=== PATIENT | female | born 1975 | race Caucasian/White ===

== ENCOUNTER 2017-12-04 11:56 | Observation (INO) | payer BC, OTHER ==
[2017-12-04] MEDS ORDERED: ASPIRIN 81 MG TABLET, CHEWABLE PO ONE (12:10)
--- NOTE | 2017-12-04 12:35 | RADIOLOGY REPORT (SQ) ---
EXAM DESCRIPTION: CHEST SINGLE VIEW COMPLETED DATE/TIME: 12/04/2017 12:27 pm REASON FOR STUDY: chest pain COMPARISON: 02/05/2012. EXAM PARAMETERS: NUMBER OF VIEWS: One view. TECHNIQUE: Single frontal radiographic view of the chest acquired. RADIATION DOSE: NA LIMITATIONS: None. FINDINGS: LUNGS AND PLEURA: No opacities, masses or pneumothorax. No pleural effusion. MEDIASTINUM AND HILAR STRUCTURES: No masses. Contour normal. HEART AND VASCULAR STRUCTURES: Heart normal in size. Normal vasculature. BONES: No acute findings. HARDWARE: None in the chest. OTHER: No other significant finding. IMPRESSION: NO ACUTE RADIOGRAPHIC FINDING IN THE CHEST. TECHNICAL DOCUMENTATION: JOB ID: [id number] [employer]- All Rights Reserved Reading location - IP/workstation name: [email or web address]
[2017-12-04 12:49] LABS: ABSOLUTE BASOPHILS # (AUTO) 0.1 10^3/uL (0.0-0.2); ABSOLUTE EOSINOPHILS # (AUTO) 0.3 10^3/uL (0.0-0.6); ABSOLUTE LYMPHOCYTES (AUTO) 2.1 10^3/uL (0.5-4.7); ABSOLUTE MONOCYTES (AUTO) 0.5 10^3/uL (0.1-1.4); ABSOLUTE NEUT (AUTO) 4.9 10^3/uL (1.7-8.2); BASOPHILS % (AUTO) 1.3 % (0-2); HEMATOCRIT 36.8 % (36.0-47.0); HEMOGLOBIN 12.3 g/dL (12.0-15.5); MEAN CORPUSCULAR HEMOGLOBIN 27.4 pg (27.0-33.4); MEAN CORPUSCULAR HGB CONC 33.3 g/dL (32.0-36.0); MEAN CORPUSCULAR VOLUME 82 fl (80-97); MONOCYTES % (AUTO) 6.7 % (3-13); PLATELET COUNT 305 10^3/uL (150-450); RED BLOOD COUNT 4.49 10^6/uL (3.72-5.28); RED CELL DISTRIBUTION WIDTH 13.8 % (11.5-14.0); TOTAL CELLS COUNTED % (AUTO) 100 %; WHITE BLOOD COUNT 7.9 10^3/uL (4.0-10.5)
[2017-12-04 13:11] LABS: ALANINE AMINOTRANSFERASE 30 U/L (9-52); ALBUMIN 3.6 g/dL (3.5-5.0); ALKALINE PHOSPHATASE 57 U/L (38-126); ANION GAP 12 (5-19); ASPARTATE AMINO TRANSFERASE 20 U/L (14-36); BILIRUBIN,DIRECT 0.2 mg/dL (0.0-0.4); BILIRUBIN,TOTAL 0.2 mg/dL (0.2-1.3); BLOOD UREA NITROGEN 13 mg/dL (7-20); CALCIUM 9.3 mg/dL (8.4-10.2); CARBON DIOXIDE 24 mmol/L (22-30); CHLORIDE 106 mmol/L (98-107); CREATINE KINASE 260 U/L (30-135); GLUCOSE 119 mg/dL (75-110); POTASSIUM 4.5 mmol/L (3.6-5.0); TOTAL PROTEIN 6.6 g/dL (6.3-8.2)
--- NOTE | 2017-12-04 13:12 | RADIOLOGY REPORT (SQ) ---
EXAM DESCRIPTION: CTA CHEST COMPLETED DATE/TIME: 12/04/2017 12:57 pm REASON FOR STUDY: sob, recent travel COMPARISON: None. TECHNIQUE: CT scan of the chest performed using helical scanning technique with dynamic intravenous contrast injection. Images reviewed with lung, soft tissue and bone windows. Reconstructed coronal and sagittal MPR images reviewed. Additional 3 dimensional post-processing performed to develop Maximal Intensity Projection images (NC P). All images stored on PACS. All CT scanners at this facility use dose modulation, iterative reconstruction, and/or weight based d osing when appropriate to reduce radiation dose to as low as reasonably achievable (ALARA). [facility]: Dose Right [facility]: CareDose [facility]: Dose Right [facility]: Teradose 4D [facility]: Advanced BioNutrition CONTRAST TYPE AND DOSE: contrast/concentration: Isovue 370.00 mg/ml; Total Contrast Delivered: 82.0 ml; Total Saline Delivered: 100.0 ml Contrast bolus adequate for pulmonary arteries and aorta. RENAL FUNCTION: None required. The patient is less than 50 years old. RADIATION DOSE: CT Rad equipment meets quality standard of care and radiation dose reduction techniq ues were employed. CTDIvol: 19.7 - 24.8 mGy. DLP: 745 mGy-cm. . LIMITATIONS: None. FINDINGS: LUNGS AND PLEURA: No masses, infiltrates, pneumothorax. No pleural effusions, calcificati ons. AORTA AND GREAT VESSELS: No aneurysm. Contrast bolus not optimized for the aorta. HEART: No pericardial effusion. No significant coronary artery calcifications. PULMONARY ARTERIES: No emboli visualized in the main pulmonary arteries or the segmental branches. HILAR AND MEDIASTINAL STRUCTURES: No identified masses or abnormal nodes. HARDWARE: None in the chest. UPPER ABDOMEN: No significant findings. Limited exam. THYROID AND OTHER SOFT TISSUES: No masses. No adenopathy. BONES: No acute or significant finding. 3D MIPS: Confirm above findings. OTHER: No other significant finding. IMPRESSION: NORMAL CTA OF THE CHEST. NO PULMONARY EMBOLI. COMMENT: Quality ID # [id number]: Final reports with documentation of one or more dose reduction techniques (e.g., Automated exposure control, adjustment of the mA and/or kV according to patient size, use of iterative reconstruction technique) TECHNICAL DOCUMENTATION: JOB ID: [id number] [employer]- All Rights Reserved Reading location - IP/workstation name: [email or web address]
[2017-12-04 13:23] LABS: CREATINE KINASE MB 0.97 ng/mL (<4.55)
[2017-12-04 13:26] LABS: TROPONIN I < 0.012 ng/mL
--- NOTE | 2017-12-04 13:42 | ER Document Report ---
ED General - General Chief Complaint: Chest Pressure Stated Complaint: CHEST PAIN Time Seen by Provider: 12/04/17 12:10 Mode of Arrival: Ambulatory Information source: Patient Notes: 42-year-old female presents with complaints of generalized swelling sensation as well as pressure on her chest. Patient notes she went hiking over the weekend, there was a [address], patient notes swelling the lower and upper extremities and sensation of pressure associated with shortness of breath. Patient denies any history of coronary artery disease or blood clots TRAVEL OUTSIDE OF THE [place] IN LAST 30 DAYS: No - HPI Onset: Last week Onset/Duration: Persistent Quality of pain: Pressure Severity: Mild Pain Level: 1 Associated symptoms: Chest pain Exacerbated by: Supine Relieved by: Denies Similar symptoms previously: No Recently seen / treated by doctor: No - Related Data Allergies/Adverse Reactions: Sulfa (Sulfonamide Antibiotics) Allergy (Severe, Verified 12/04/17 15:00) lip swelling Penicillins Allergy (Intermediate, Verified 12/04/17 15:00) Hives ketorolac tromethamine [From Toradol] Allergy (Verified 12/04/17 15:00) cyclobenzaprine Adverse Reaction (Verified 12/04/17 15:00) heart racing Past Medical History - Social History Smoking Status: Never Smoker Cigarette use (# per day): No Chew tobacco use (# tins/day): No Smoking Education Provided: No Frequency of alcohol use: None Drug Abuse: None Family History: Reviewed & Not Pertinent Patient has suicidal ideation: No Patient has homicidal ideation: No Renal/ Medical History: Denies: Hx Peritoneal Dialysis Past Surgical History: Reports: Hx Breast Surgery - reduction - Immunizations Hx Diphtheria, Pertussis, Tetanus Vaccination: Yes Review of Systems - Review of Systems Notes: REVIEW OF SYSTEMS: CONSTITUTIONAL : Denies fever, chills, or sweats. Denies recent illness. EENT: Denies eye, ear, throat, or mouth pain or symptoms. Denies nasal or sinus congestion or discharge. Denies throat, tongue, or mouth swelling or difficulty swallowing. CARDIOVASCULAR: Admits to chest pain GASTROINTESTINAL: Denies abdominal pain or distention. Denies nausea, vomiting , or diarrhea. Denies blood in vomitus, stools, or per rectum. Denies black, tarry stools. Denies constipation. GENITOURINARY: Denies difficulty urinating, painful urination, burning, frequency, blood in urine, or discharge. FEMALE GENITOURINARY: Denies vaginal bleeding, heavy or abnormal periods, irregular periods. Denies vaginal discharge or odor. MUSCULOSKELETAL: Admits to generalized swelling SKIN: Denies rash, lesions or sores. HEMATOLOGIC : Denies easy bruising or bleeding. LYMPHATIC: Denies swollen, enlarged glands. NEUROLOGICAL: Denies confusion or altered mental status. Denies passing out or loss of consciousness. Denies dizziness or lightheadedness. Denies headache. Denies weakness or paralysis or loss of use of either side. Denies problems with gait or speech. Denies sensory loss, numbness, or tingling. Denies seizures. PSYCHIATRIC: Denies anxiety or stress. Denies depression, suicidal ideation, or homicidal ideation. ALL OTHER SYSTEMS REVIEWED AND NEGATIVE. PHYSICAL EXAMINATION: GENERAL: Well-appearing, well-nourished and in no acute distress. HEAD: Atraumatic, normocephalic. EYES: Pupils equal round and reactive to light, extraocular movements intact, conjunctiva are normal. ENT: Nares patent, oropharynx clear without exudates. Moist mucous membranes. NECK: Normal range of motion, supple without lymphadenopathy LUNGS: Breath sounds clear to auscultation bilaterally and equal. No wheezes rales or rhonchi. HEART: Regular rate and rhythm without murmurs ABDOMEN: Soft, nontender, nondistended abdomen. No guarding, no rebound. No masses appreciated. Female : deferred Musculoskeletal: Normal range of motion, non-pitting edema of the bilateral lower extremities NEUROLOGICAL: Cranial nerves grossly intact. Normal speech, normal gait. Normal sensory, motor exams PSYCH: Normal mood, normal affect. SKIN: Warm, Dry, normal turgor, no rashes or lesions noted. Dictation was performed using [employer] voice recognition software Physical Exam - Vital signs Vitals: Temp Pulse Resp BP Pulse Ox 98.5 F 73 16 145/79 H 97 12/04/17 12:01 12/04/17 12:01 12/04/17 12:01 12/04/17 12:01 12/04/17 12:01 Course - Re-evaluation Re-evalutation: 12/04/17 16:42 Patient's presentation was initially concerning for pulmonary emboli, CTA noted no effusions no fluid, the patient however continues to have pressure sensation of her chest, my concern is for an acute coronary syndrome therefore cardiac enzymes were ordered. BNP was slightly elevated - Vital Signs Vital signs: Temp Pulse Resp BP Pulse Ox 98.5 F 73 13 114/81 98 12/04/17 12:01 12/04/17 12:01 12/04/17 15:28 12/04/17 15:28 12/04/17 15:59 - Laboratory Result Diagrams: 12/04/17 12:36 12/04/17 12:36 Laboratory results interpreted by me: 12/04/17 12/04/17 12/04/17 12:36 12:36 14:22 Glucose 119 H Creatine Kinase 260 H NT-Pro-B Natriuret Pep 674 H Urine Blood MODERATE H Ur Leukocyte Esterase SMALL H - Diagnostic Test Radiology reviewed: Image reviewed - CTA chest notes no acute abnormality, Reports reviewed Discharge - Discharge Clinical Impression: Generalized edema Chest pain Qualifiers: Chest pain type: unspecified Qualified Code(s): R07.9 - Chest pain, unspecified Condition: Stable Disposition: ADMITTED OBSERVATION Admitting Provider: Hospitalist Unit Admitted: Telemetry
[2017-12-04] MEDS ORDERED: ONDANSETRON HCL INJ/PF 4 MG/2 ML SDV IV PRN (14:13)
[2017-12-04] MEDS ORDERED: MAG HYDROX/AL HYDROX/SIMETH SUSP 30 ML UDCUP PO PRN (14:13)
[2017-12-04] MEDS ORDERED: NITROGLYCERIN 0.4 MG/TAB 25 TAB/BOTTLE SL PRN (14:13)
[2017-12-04] MEDS ORDERED: DOCUSATE SODIUM 100 MG CAPSULE PO PRN (14:13)
[2017-12-04] MEDS ORDERED: FUROSEMIDE INJ/PF 20 MG/2 ML SDV IV ONE (15:15)
[2017-12-04 15:30] LABS: APPEARANCE,URINE SLIGHTLY-CLOUDY; BILIRUBIN,URINE NEGATIVE (NEGATIVE); COLOR,URINE STRAW; GLUCOSE, URINE NEGATIVE (NEGATIVE); KETONES,URINE NEGATIVE (NEGATIVE); LEUKOCYTE ESTERASE,URINE SMALL (NEGATIVE); NITRITE,URINE NEGATIVE (NEGATIVE); PROTEIN,URINE NEGATIVE (NEGATIVE); URINE SPECIFIC GRAVITY 1.016; UROBILINOGEN,URINE NEGATIVE mg/dL (<2.0)
--- NOTE | 2017-12-04 15:56 | PDOC H&P ---
History of Present Illness Admission Date/PCP: 12/04/17 14:30 Patient complains of: Chest pressure, dyspnea, and generalized edema History of Present Illness: CHENG BILLINGS is a 42 year old female with no significant past medical history who presented to the emergency department today with a complaint of generalized edema progressively worsening 4 days, worsening dyspnea and orthopnea 2 days and chest discomfort described as pressure first noted this morning. She reports that her chest pressure pressure is nonradiating, generalized throughout chest, worsens when lying flat and improves when sitting upright or abducting arms bilaterally. The patient reports that she returned from a 30 mile hike 4 days ago and has had minimal urinary output since despite aggressively pushing p.o. fluids. She denies abdominal pain, flank pain, hematuria and dysuria, however, has noted that her urine has been very dark in color. She does admit to numerous bug/ mosquito bites but denies take exposure and rash. She denies unilateral leg edema, erythema, or pain. She denies fever, chills, cough, abdominal pain, nausea vomiting diarrhea and constipation. Evaluation in the emergency department reveals mild hypertenstion (145/79), normal CBC, and mildly elevated glucose (119) and creatine kinase (260). EKG demonstrates normal sinus rhythm. Chest x-ray and chest CTA are benign and without evidence of pulmonary emboli. The patient is admitted for chest discomfort and generalized edema. Past Medical History Cardiac Medical History: Denies: Congestive Heart Failure, Coronary Artery Disease, DVT, Myocardial Infarction Pulmonary Medical History: Denies: Asthma, Chronic Obstructive Pulmonary Disease (COPD), Pneumonia EENT Medical History: Reports: None Neurological Medical History: Denies: Ischemic CVA, Migraine, Seizures Endocrine Medical History: Reports: Obesity Denies: Diabetes Mellitus Type 1, Diabetes Mellitus Type 2, Hyperthyroidism, Hypothyroidism Renal/ Medical History: Reports: None Denies: Chronic Kidney Disease Malignancy Medical History: Reports: None GI Medical History: Reports: None Denies: Gastroesophageal Reflux Disease, Peptic Ulcer Disease Musculoskeltal Medical History: Reports: None Skin Medical History: Reports: None Psychiatric Medical History: Reports: None Denies: Alcohol Dependency, Depression, General Anxiety Disorder, Substance Abuse, Tobacco Dependency Traumatic Medical History: Reports: None Hematology: Reports: None Infectious Medical History: Reports: None Past Surgical History Past Surgical History: Reports: Other - Breast reduction Social History Information Source: Patient Lives with: Family Smoking Status: Never Smoker Frequency of Alcohol Use: Occasional Hx Recreational Drug Use: No Drugs: None Hx Prescription Drug Abuse: No - Advance Directive Resuscitation Status: Full Code Family History Family History: DM, Malignancy, Other - EtOH abuse Parental Family History Reviewed: Yes Children Family History Reviewed: Yes Sibling(s) Family History Reviewed.: Yes Medication/Allergy Home Medications: Norgestimate-Ethinyl Estradiol [Mononessa 28 Tablet] 1 each PO DAILY 12/04/17 Allergies/Adverse Reactions: Sulfa (Sulfonamide Antibiotics) Allergy (Severe, Verified 12/04/17 15:00) lip swelling Penicillins Allergy (Intermediate, Verified 12/04/17 15:00) Hives ketorolac tromethamine [From Toradol] Allergy (Verified 12/04/17 15:00) cyclobenzaprine Adverse Reaction (Verified 12/04/17 15:00) heart racing Review of Systems Constitutional: ABSENT: chills, fever(s), headache(s), weight gain, weight loss Eyes: ABSENT: visual disturbances Ears: ABSENT: hearing changes Cardiovascular: PRESENT: chest pain, dyspnea on exertion, edema, orthropnea, palpitations Respiratory: PRESENT: dyspnea. ABSENT: cough, hemoptysis, sputum Gastrointestinal: ABSENT: abdominal pain, constipation, diarrhea, hematemesis, hematochezia, nausea, vomiting Genitourinary: PRESENT: other - Decreased urinary output. ABSENT: dysuria, hematuria Musculoskeletal: ABSENT: joint swelling Integumentary: ABSENT: rash, wounds Neurological: ABSENT: abnormal gait, abnormal speech, confusion, dizziness, focal weakness, syncope Psychiatric: ABSENT: anxiety, depression, homidical ideation, suicidal ideation Endocrine: ABSENT: cold intolerance, heat intolerance, polydipsia, polyuria Hematologic/Lymphatic: ABSENT: easy bleeding, easy bruising Physical Exam Vital Signs: Temp Pulse Resp BP Pulse Ox 98.5 F 73 16 145/79 H 98 12/04/17 12:01 12/04/17 12:01 12/04/17 12:12/04/17 12:12/04/17 12:10 General appearance: PRESENT: no acute distress, well-developed, well-nourished Head exam: PRESENT: atraumatic, normocephalic Eye exam: PRESENT: conjunctiva pink, EOMI, PERRLA. ABSENT: scleral icterus Ear exam: PRESENT: normal external ear exam Mouth exam: PRESENT: moist, tongue midline Neck exam: ABSENT: carotid bruit, JVD, lymphadenopathy, thyromegaly Respiratory exam: PRESENT: clear to auscultation nupur. ABSENT: rales, rhonchi, wheezes Cardiovascular exam: PRESENT: RRR. ABSENT: diastolic murmur, rubs, systolic murmur Pulses: PRESENT: normal dorsalis pedis pul Vascular exam: PRESENT: normal capillary refill GI/Abdominal exam: PRESENT: normal bowel sounds, soft. ABSENT: distended, guarding, mass, organolmegaly, rebound, tenderness Rectal exam: PRESENT: deferred Extremities exam: PRESENT: full ROM. ABSENT: calf tenderness, clubbing, pedal edema Neurological exam: PRESENT: alert, awake, oriented to person, oriented to place , oriented to time, oriented to situation, CN II-XII grossly intact. ABSENT: motor sensory deficit Psychiatric exam: PRESENT: appropriate affect, normal mood. ABSENT: homicidal ideation, suicidal ideation Skin exam: PRESENT: dry, intact, warm. ABSENT: cyanosis, rash Results Impressions: Chest X-Ray 12/04/17 12:10 IMPRESSION: NO ACUTE RADIOGRAPHIC FINDING IN THE CHEST. Chest/Abdomen CTA 12/04/17 12:20 IMPRESSION: NORMAL CTA OF THE CHEST. NO PULMONARY EMBOLI. Assessment & Plan - Diagnosis (1) Chest pain Qualifiers: Chest pain type: unspecified Qualified Code(s): R07.9 - Chest pain, unspecified Is this a current diagnosis for this admission?: Yes Plan: The patient presented to the emergency department with complaint of generalized chest discomfort associated with dyspnea at rest and orthopnea and generalized edema. HEART score 2 (low risk). Patient's risk factors only include obesity. Despite low probability of acute coronary syndrome, her symptoms seem to be rapidly worsening and therefore she is admitted under observational status for chest pain workup. Chest x-ray is normal CTA is benign; no evidence of pulmonary emboli EKG demonstrated normal sinus rhythm Initial troponin is negative BNP is moderately elevated at 674 She is admitted to the medical floor on continuous cardiac telemetry. We will obtain echocardiogram. Monitor serial troponins. Plan for treadmill stress test in the morning. Daily aspirin and statin therapy. Will assess lipid panel, TSH, and hemoglobin A1c with morning labs. SL Nitro tabs as needed for chest pain. (2) Dyspnea Is this a current diagnosis for this admission?: Yes Plan: The patient reports 4 days of progressively worsening dyspnea at rest and orthopnea. Symptoms are improved by sitting high Andrew's and choking arms bilaterally. Although chest x-ray and CTA do not evidence pulmonary edema; symptoms may be related to generalized edema vs chest wall discomfort/muscle fatigue (patient recently returned from a 30 mile hike on the [facility]) . ProBNP elevated 674 Echocardiogram pending Supplemental oxygen as needed to maintain oxygen saturations greater than 90%. We will trial diuresing with IV furosemide 20 mg 1; assess response prior to additional doses. Patient is currently maintaining oxygen saturations on room air, though appears to be fatigued. Will place order for BiPAP as needed. (3) Generalized edema Is this a current diagnosis for this admission?: Yes Plan: Unclear etiology; proBNP is mildly elevated at 674. Creatinine kinase is also elevated to 260, however, creatinine is normal at 0.74. The patient reports that she has had 4 days of minimal urinary output despite aggressive p.o. fluid rehydration following return from her hike. First "normal amount" or urine void was noted this morning, although, patient noted that urine remains dark and strong smelling. Considering that the patient may be recovering from an Acute Kidney Injury or potential rhabdomyolysis that was corrected with oral fluids at home and therefore not reflective in her laboratory values. Additional consideration for new diagnosis of CHF. Will further evaluate for rhabdomyolysis with CRP and sed rate. We will trend creatinine kinase. Echocardiogram pending. Will trial furosemide and monitor for clinical improvement and proBNP response with morning labs. Pt denies fever, rash, or tick exposure; consider infectious process if patient develops fever, rash, or leukocytosis. Will asses TSH. Holding IVF given elevated BNP; however, have encouraged continued oral fluid intake. Patient is placed on a cardiac diet. Will monitor strict I&Os. (4) Decreased urine output Is this a current diagnosis for this admission?: Yes Plan: Patient reports minimal urinary output 4 days; likely related to dehydration. Creatinine and BUN are appropriate. Urinalysis is positive for blood and leuk esterase but negative for UTI. We will monitor strict I's and O's. Encourage p.o. fluids. Avoid nephrotoxic medications. Consider renal ultrasound for continued poor urinary output. Holding IVF currently 2/2 generalized edema and mildly elevated proBNP. - Time Time Spent: 50 to 70 Minutes Medications reviewed and adjusted accordingly: Yes Anticipated discharge: Home Within: within 24 hours
[2017-12-04] MEDS ORDERED: ATORVASTATIN CALCIUM 20 MG TABLET PO SCH (22:00)
--- NOTE | 2017-12-04 22:38 | EKG REPORT ---
SEVERITY:- NORMAL ECG - SINUS RHYTHM : Confirmed by: Talisha Cage MD 04-Dec-2017 22:37:43
[2017-12-04] MEDS: FAMOTIDINE 20 MG TABLET PO SCH (22:46)
[2017-12-05 07:08] LABS: HEMATOCRIT 34.7 % (36.0-47.0); HEMOGLOBIN 11.6 g/dL (12.0-15.5); MEAN CORPUSCULAR HEMOGLOBIN 27.6 pg (27.0-33.4); MEAN CORPUSCULAR HGB CONC 33.5 g/dL (32.0-36.0); MEAN CORPUSCULAR VOLUME 82 fl (80-97); PLATELET COUNT 261 10^3/uL (150-450); RED BLOOD COUNT 4.22 10^6/uL (3.72-5.28); RED CELL DISTRIBUTION WIDTH 13.8 % (11.5-14.0); WHITE BLOOD COUNT 7.7 10^3/uL (4.0-10.5)
[2017-12-05 07:33] LABS: ANION GAP 8 (5-19); BLOOD UREA NITROGEN 14 mg/dL (7-20); CALCIUM 9.2 mg/dL (8.4-10.2); CARBON DIOXIDE 27 mmol/L (22-30); CHLORIDE 106 mmol/L (98-107); CHOLESTEROL 170.32 mg/dL (0-200); CREATINE KINASE 154 U/L (30-135); GLUCOSE 107 mg/dL (75-110); POTASSIUM 4.2 mmol/L (3.6-5.0); SODIUM 140.9 mmol/L (137-145); TRIGLYCERIDES 115 mg/dL (<150)
[2017-12-05 07:44] LABS: DIRECT LDL 90 mg/dL (<100)
[2017-12-05] MEDS ORDERED: NORGESTIMATE ETHINYL ESTRADIOL PO SCH (10:00)
[2017-12-05] MEDS ORDERED: ASPIRIN 81 MG TABLET, ENT COATED PO SCH (10:00)
--- NOTE | 2017-12-05 12:34 | DRAGON STRESS TEST REPORT ---
EXERCISE TREADMILL STRESS TEST DATE OF PROCEDURE: December 05, 2017, INDICATION : Chest pressure CARDIAC RISK FACTORS: Mild dyslipidemia and borderline hypertension RESTING EKG: Sinus rhythm without any baseline ST-T wave changes STRESS EKG: No significant ST segment changes with exercise. REASON FOR TERMINATION: Shortness of breath and fatigue PROCEDURE REPORT: Patient was walked on a standard Judd protocol. Patient walked for a total of 6 minutes and 23 seconds. Patient achieved a peak heart rate of 153 bpm. This is 85% of predicted maximum. Peak blood pressure was noted to be 184/71. Double product achieved was noted to be 27.6 kcal. EKG obtained during exercise, at peak exercise and recovery did not show any significant ST segment changes. IMPRESSION: Exercise treadmill stress test negative for significant EKG changes at adequate heart rate response and blood pressure response. Exercise tolerance was noted to be average for patient age. Patient to be informed that a negative stress test does not rule out CAD. RECOMMENDATIONS: Aggressive risk factor modification and medical management. Further evaluation may be needed if continued symptoms or other high risk indicators are noted on clinical evaluation. Consider cardiology consultation and or follow-up if clinically indicated. I am available for cardiology evaluation and consultation if requested by the cook cashier food prep, unless patient already has a diet aid. SAY
[2017-12-05] MEDS: FAMOTIDINE 20 MG TABLET PO SCH (12:38)
--- NOTE | 2017-12-05 13:03 | XCELERA REPORT ---
[address] [address] Transthoracic Echocardiogram Report Name: CHENG BILLINGS Age: 42 yrs Gender: Female : 1975 Patient Status: Inpatient Patient Location: [address] [place] [address] Study Date: 12/05/2017 08:41 AM Procedure: A complete two-dimensional transthoracic echocardiogram was performed (2D, M-mode, spectral and color flow Doppler). The study was technically adequate with some images being suboptimal in quality. Reason For Study: Chest pain Ordering Physician: NENA GUILLERMO Performed By: Noris Oropeza Interpretation Summary The left ventricular ejection fraction is normal. There is borderline concentric left ventricular hypertrophy. The left ventricle is grossly normal size. Doppler measurements suggest normal left ventricular diastolic function Wall motion cannot be accurately commented on, but no definite regional wall motion abnormalities noted. The right ventricle is grossly normal size. The right ventricular systolic function is normal. The left atrium is mildly dilated. The right atrium is normal in size There is no mitral valve stenosis. There is a trace amount of mitral regurgitation No aortic regurgitation is present. There is no aortic valve stenosis There is a trace or physiologic amount of tricuspid regurgitation Tricuspid regurgitation jet envelope not well defined to measure RV systolic pressure accurately. The aortic root is not well visualized but is probably normal size. The inferior vena cava was not well visualized There is no pericardial effusion. Left Ventricle The left ventricle is grossly normal size. There is borderline concentric left ventricular hypertrophy. The left ventricular ejection fraction is normal. Doppler measurements suggest normal left ventricular diastolic function. Wall motion cannot be accurately commented on, but no definite regional wall motion abnormalities noted. Right Ventricle The right ventricle is grossly normal size. There is normal right ventricular wall thickness. The right ventricular systolic function is normal. Atria The right atrium is normal in size. The left atrium is mildly dilated. Interarterial septum not well visualized and not well dopplered. Cannot comment on ASD/PFO presence. Mitral Valve The mitral valve is grossly normal. There is no mitral valve stenosis. There is a trace amount of mitral regurgitation. Aortic Valve The aortic valve opens well. The aortic valve is not well visualized secondary to technical limitations. There is no aortic valve stenosis. No aortic regurgitation is present. Tricuspid Valve The tricuspid valve is not well visualized, but is grossly normal. There is no tricuspid stenosis. There is a trace or physiologic amount of tricuspid regurgitation. Tricuspid regurgitation jet envelope not well defined to measure RV systolic pressure accurately. Pulmonic Valve The pulmonic valve is not well visualized. Great Vessels The aortic root is not well visualized but is probably normal size. The inferior vena cava was not well visualized. Effusions There is no pericardial effusion. : NENA GUILLERMO > Jayjay Jensen
--- NOTE | 2017-12-05 13:24 | PDOC CONSULTATION ---
Consultation Consult Date: 12/05/17 Attending physician:: KEO BRANDT Consult reason:: CHF History of Present Illness Admission Date/PCP: 12/04/17 14:30 Patient complains of: Shortness of breath, chest pain and edema History of Present Illness: CHENG BILLINGS is a 42 year old female with no significant past medical history who presented to the emergency department today with a complaint of generalized edema progressively worsening 4 days, worsening dyspnea and orthopnea 2 days and chest discomfort described as pressure first noted this morning. She reports that her chest pressure pressure is nonradiating, generalized throughout chest, worsens when lying flat and improves when sitting upright or abducting arms bilaterally. The patient reports that she returned from a 30 mile hike 4 days ago and has had minimal urinary output since despite aggressively pushing p.o. fluids. She denies abdominal pain, flank pain, hematuria and dysuria, however, has noted that her urine has been very dark in color. She does admit to numerous bug/ mosquito bites but denies take exposure and rash. She denies unilateral leg edema, erythema, or pain. She denies fever, chills, cough, abdominal pain, nausea vomiting diarrhea and constipation. Evaluation in the emergency department reveals mild hypertenstion (145/79), normal CBC, and mildly elevated glucose (119) and creatine kinase (260). EKG demonstrates normal sinus rhythm. Chest x-ray and chest CTA are benign and without evidence of pulmonary emboli. The patient is admitted for chest discomfort and generalized edema. This history obtained by the hospitalist was reviewed and confirmed. Patient denied any prior history of heart problems. She denied any family history of premature coronary artery disease or sudden cardiac in the immediate family members. She claims that she has been using dehydrated food which may have been salty. She claims that her fluid intake was noted to be adequate. Past Medical History Cardiac Medical History: Denies: Congestive Heart Failure, Coronary Artery Disease, DVT, Myocardial Infarction Pulmonary Medical History: Denies: Asthma, Chronic Obstructive Pulmonary Disease (COPD), Pneumonia EENT Medical History: Reports: None Neurological Medical History: Denies: Ischemic CVA, Migraine, Seizures Endocrine Medical History: Reports: Obesity Denies: Diabetes Mellitus Type 1, Diabetes Mellitus Type 2, Hyperthyroidism, Hypothyroidism Renal/ Medical History: Reports: None Denies: Chronic Kidney Disease Malignancy Medical History: Reports: None GI Medical History: Reports: None Denies: Gastroesophageal Reflux Disease, Peptic Ulcer Disease Musculoskeltal Medical History: Reports: None Skin Medical History: Reports: None Psychiatric Medical History: Reports: None Denies: Alcohol Dependency, Depression, General Anxiety Disorder, Substance Abuse, Tobacco Dependency Traumatic Medical History: Reports: None Hematology: Reports: None Infectious Medical History: Reports: None Past Surgical History Past Surgical History: Reports: Other - Breast reduction Social History Information Source: Patient Lives with: Family Smoking Status: Never Smoker Frequency of Alcohol Use: None Hx Recreational Drug Use: No Drugs: None Hx Prescription Drug Abuse: No - Advance Directive Resuscitation Status: Full Code Family History Family History: Reviewed & Not Pertinent Parental Family History Reviewed: Yes Children Family History Reviewed: Yes Sibling(s) Family History Reviewed.: Yes - Negative for premature coronary artery disease or sudden cardiac in the family amongst first degree relatives. Medication/Allergy Home Medications: Norgestimate-Ethinyl Estradiol [Mononessa 28 Tablet] 1 each PO DAILY 12/04/17 Allergies/Adverse Reactions: Sulfa (Sulfonamide Antibiotics) Allergy (Severe, Verified 12/04/17 15:00) lip swelling Penicillins Allergy (Intermediate, Verified 12/04/17 15:00) Hives ketorolac tromethamine [From Toradol] Allergy (Verified 12/04/17 15:00) cyclobenzaprine Adverse Reaction (Verified 12/04/17 15:00) heart racing Review of Systems Review of Systems: Please see history of present illness and past medical history as wall. Constitutional: No fever or chills reported. Head : No recent chronic headaches, recent head injury. Eyes: No recent eye pain, diplopia, redness, discharge, acute visual changes. Ears: No recent chronic ear pain, acute hearing loss, ear discharge. Oral cavity: No recent ulcerations, bleeding, oral cavity discomfort. Neck: No recent acute neck pain reported. Hematologic: No recent easy bruising or bleeding. Lymphatic: No recent lymph node enlargement reported. Cardiovascular system review: See history of present illness. Respiratory system review: No hemoptysis or blood clots in the lungs reported. Mild Shortness of breath on exertion Gastrointestinal system review: Negative for any recent acute hematemesis, melena. Genitourinary system review: No recent acute or chronic hematuria, flank pain, UTI etc. reported. Skin system review: Negative for any recent abnormal bruising, no rash, no pruritus reported. Neurologic: No prior history of strokes, mini strokes, seizure disorder. Psychologic: No history of major psychosis or major depression reported. Musculoskeletal: Minor aches and pains reported. No acute joint swelling reported. Endocrine: No recent polyuria, polydipsia, recent heat or cold intolerance. Physical Exam Vital Signs: Temp Pulse Resp BP Pulse Ox 98.2 F 56 L 16 108/62 99 12/05/17 07:40 12/05/17 07:40 12/05/17 07:40 12/05/17 07:40 12/05/17 07:40 Intake & Output 12/04/17 12/05/17 12/06/17 06:59 06:59 06:59 Intake Total 340 Balance 340 Weight 111.1 kg 111.1 kg Exam: GENERAL: well-nourished and in no acute distress. Alert and oriented x3 HEAD: Atraumatic, normocephalic. EYES: Pupils equal round and reactive to light, extraocular movements intact, sclera anicteric, conjunctiva are normal. ENT: TMs normal, nares patent, oropharynx clear without exudates. Moist mucous membranes. No oral ulcerations or bleeding gums noted NECK: supple without lymphadenopathy. Trachea is central. No cervical or axillary lymphadenopathy noted. Carotids are 2+, JVD WNL LUNGS: Respiration seems nonlabored, no significant accessory muscle action noted. Breath sounds clear to auscultation bilaterally and equal noted. No wheezes rales or rhonchi noted. No significant dullness noted on percussion. CHEST: Palpation of the chest wall shows no significant chest wall tenderness. HEART: [place] [employer], No PSH, 1/6 BARAK aortic area, 1/6 brunner systolic murmur mitral area, no rubs, no gallops. ABDOMEN: Soft, no significant tenderness appreciated, normoactive bowel sounds. No guarding, no rebound. No rigidity noted . No masses appreciated. EXTREMITIES: Pedal pulses are 1-2+, no calf tenderness noted. No clubbing or cyanosis. Trace pedal edema noted NEUROLOGICAL: Focused neurological exam showed no significant neurologic deficit. Normal speech, no focal weakness appreciated. PSYCH: Normal mood, normal affect. Judgment and insight within normal limits. SKIN: No significant ecchymosis, skin is noted to be warm. MUSCULOSKELETAL EXAM: No significant acute joint swelling noted. Results Laboratory Results: 12/05/17 06:53 12/05/17 06:53 12/05/17 12/05/17 12/05/17 06:53 06:53 06:53 WBC 7.7 RBC 4.22 Hgb 11.6 L Hct 34.7 L MCV 82 MCH 27.6 MCHC 33.5 RDW 13.8 Plt Count 261 Sodium 140.9 Potassium 4.2 Chloride 106 Carbon Dioxide 27 Anion Gap 8 BUN 14 Creatinine 0.82 Est GFR ( Amer) > 60 Est GFR (Non-Af Amer) > 60 Glucose 107 Calcium 9.2 Triglycerides 115 Cholesterol 170.32 LDL Cholesterol Direct 90 VLDL Cholesterol 23.0 HDL Cholesterol 59 TSH 4.57 12/04/17 12/04/17 12/05/17 16:20 22:15 06:53 Creatine Kinase Troponin I < 0.012 < 0.012 NT-Pro-B Natriuret Pep 286 H 12/05/17 06:53 Creatine Kinase 154 H Troponin I NT-Pro-B Natriuret Pep EKG Comments: Sinus rhythm, no acute ST-T wave changes noted. Impressions: Chest X-Ray 12/04/17 12:10 IMPRESSION: NO ACUTE RADIOGRAPHIC FINDING IN THE CHEST. Chest/Abdomen CTA 12/04/17 12:20 IMPRESSION: NORMAL CTA OF THE CHEST. NO PULMONARY EMBOLI. Assessment & Plan - Diagnosis (1) Chest pain Qualifiers: Chest pain type: unspecified Qualified Code(s): R07.9 - Chest pain, unspecified Is this a current diagnosis for this admission?: Yes (2) Decreased urine output Is this a current diagnosis for this admission?: Yes (3) Dyspnea Qualifiers: Dyspnea type: unspecified Qualified Code(s): R06.00 - Dyspnea, unspecified Is this a current diagnosis for this admission?: Yes (4) Generalized edema Is this a current diagnosis for this admission?: Yes (5) Hypertension Qualifiers: Hypertension type: essential hypertension Qualified Code(s): I10 - Essential (primary) hypertension Is this a current diagnosis for this admission?: Yes (6) Elevated brain natriuretic peptide (BNP) level Is this a current diagnosis for this admission?: Yes - Notes Notes: Chest pain: Patient is a young woman with only history of borderline hypertension, who presents with chest pain. Agree with scheduling a treadmill stress test. Treadmill stress test was in fact performed and completed. It was negative for any significant ST-T wave changes or ischemia. Decreased urine output: Exact etiology not clear. May consider ultrasound of the kidneys. Dyspnea: Most likely related to diastolic dysfunction. This was in the event of fluid overload. Generalized edema: Most likely related to fluid overload. Hypertension: Borderline. Will review 2D echocardiogram. May consider angiotensin receptor marcus or JC inhibitors if LVH is noted. Elevated BNP level: Exact etiology not clear. Could be related to excess fluid intake, and volume overload causing release of BNP from heart muscles. This could happen in the setting of diastolic dysfunction. We will consider ruling out sleep apnea syndrome in this patient with a home sleep study. - Time Time Spent: 30 to 50 Minutes - CODE STATUS was discussed, patient remains full code. Surrogate decision-maker patient's . Multiple medical problems were addressed. More than 50% of the time spent coordinating care, discussing management plans with involved caregivers. Management plans discussed with involved personnels. Medical decision making was of moderate to high complexity , patient's has multiple comorbidities. Medications reviewed and adjusted accordingly: Yes
[2017-12-05 16:05] VITALS: BP 121/71
[2017-12-05] MEDS ORDERED: FUROSEMIDE 20 MG TABLET PO ONE (17:45)
--- NOTE | 2017-12-08 20:37 | PDOC DISCHARGE SUMMARY ---
General - Admit/Disc Date/PCP Admission Date/Primary Care Provider: 12/04/17 14:30 Discharge Date: 12/07/17 - Discharge Diagnosis (1) Chest pain Is this a current diagnosis for this admission?: Yes (2) Dyspnea Is this a current diagnosis for this admission?: Yes (3) Generalized edema Is this a current diagnosis for this admission?: Yes (4) Decreased urine output Is this a current diagnosis for this admission?: Yes - Additional Information Resuscitation Status: Full Code Discharge Diet: Other (Comments) - Low sodium. Discharge Activity: Activity As Tolerated Prescriptions: Furosemide [Lasix] 10 mg PO DAILYP PRN #5 tablet PRN Reason: Home Medications: Norgestimate-Ethinyl Estradiol [Mononessa 28 Tablet] 1 each PO DAILY 12/04/17 Aspirin [Ecotrin 81 mg EC Tablet] 81 mg PO DAILY tabec 12/05/17 Furosemide [Lasix] 10 mg PO DAILYP PRN #5 tablet 12/05/17 History of Present Illness History of Present Illness: CHENG BILLINGS is a 42 year old female with no significant past medical history who presented to the emergency department today with a complaint of generalized edema progressively worsening 4 days, worsening dyspnea and orthopnea 2 days and chest discomfort described as pressure first noted this morning. She reports that her chest pressure pressure is nonradiating, generalized throughout chest, worsens when lying flat and improves when sitting upright or abducting arms bilaterally. The patient reports that she returned from a 30 mile hike 4 days ago and has had minimal urinary output since despite aggressively pushing p.o. fluids. She denies abdominal pain, flank pain, hematuria and dysuria, however, has noted that her urine has been very dark in color. She does admit to numerous bug/ mosquito bites but denies take exposure and rash. She denies unilateral leg edema, erythema, or pain. She denies fever, chills, cough, abdominal pain, nausea vomiting diarrhea and constipation. Evaluation in the emergency department reveals mild hypertenstion (145/79), normal CBC, and mildly elevated glucose (119) and creatine kinase (260). EKG demonstrates normal sinus rhythm. Chest x-ray and chest CTA are benign and without evidence of pulmonary emboli. The patient is admitted for chest discomfort and generalized edema. Hospital Course Hospital Course: The patient was admitted with chest discomfort x 1 day described as generalized pressure that was nonradiating and worsened with lying supine and improved with sitting upright and associated with dyspnea on exertion and orthopnea. The patient also complained of progressively worsening generalized edema x 3-4 days. She reported oliguria for 3-4 days after returning from a 30 mile hike. She had been drinking large amounts of fluids as self management at home. Chest x-ray is normal CTA is benign; no evidence of pulmonary emboli EKG demonstrated normal sinus rhythmInitial evaluation Troponins were negative x 3. BNP was moderately elevated at 674 and trended down to 286 following gentle diuresis with IV furosemide. Creatinine kinase minimally elevated to 264 and drifting down. Echocardiogram was reassuring. Treadmill stress test was normal. Sed rate and CRP normal. Lipid panel, TSH, and hemoglobin A1c acceptable. Urinalysis and urine negative. The patient was admitted to the medical floor on continuous cardiac telemetry. Cardiac work up was reassuring. The patient was provided gentle diuresis with IV furosemide 20 mg x 1 with adequate urinary output. The patient rapidly felt relief of dyspnea and edema. Cardiology was consulted; recommended outpatient follow up for overnight sleep study. The patient was counselled on lifestyle modifications (low fat/low sodium diet, decreased caloric intake, exercise as tolerated, attained weight loss). She was provided a prescription for low dose lasix to take as needed for swelling. She is advised to follow up with her primary care provider within 1 week at to follow up with either PCP or cardiology for overnight sleep study. At time of discharge, the patient is in stable condition and chest pain free. Physical Exam Vital Signs: Temp Pulse Resp BP Pulse Ox 98.6 F 67 16 121/71 100 12/05/17 17:22 12/05/17 17:22 12/05/17 17:22 12/05/17 15:23 12/05/17 17:22 Intake & Output 12/06/17 12/07/17 12/08/17 06:59 06:59 06:59 Intake Total 450 Balance 450 Weight 111.1 kg General appearance: PRESENT: no acute distress, well-developed, well-nourished Head exam: PRESENT: atraumatic, normocephalic Eye exam: PRESENT: conjunctiva pink, EOMI, PERRLA. ABSENT: scleral icterus Mouth exam: PRESENT: moist, tongue midline Neck exam: ABSENT: carotid bruit, JVD, lymphadenopathy, thyromegaly Respiratory exam: PRESENT: clear to auscultation nupur, symmetrical, unlabored. ABSENT: rales, rhonchi, wheezes Cardiovascular exam: PRESENT: RRR, +S1, +S2. ABSENT: diastolic murmur, rubs, systolic murmur Pulses: PRESENT: normal dorsalis pedis pul Vascular exam: PRESENT: normal capillary refill GI/Abdominal exam: PRESENT: normal bowel sounds, soft. ABSENT: distended, guarding, mass, organolmegaly, rebound, tenderness Rectal exam: PRESENT: deferred Extremities exam: PRESENT: full ROM, pedal edema - BLE trace edema; significantly improved from yesterday.. ABSENT: calf tenderness, clubbing Neurological exam: PRESENT: alert, awake, oriented to person, oriented to place , oriented to time, oriented to situation, CN II-XII grossly intact. ABSENT: motor sensory deficit Psychiatric exam: PRESENT: appropriate affect, normal mood. ABSENT: homicidal ideation, suicidal ideation Skin exam: PRESENT: dry, intact, warm. ABSENT: cyanosis, rash Results Laboratory Results: 12/05/17 06:53 12/05/17 06:53 12/04/17 12/04/17 12/05/17 16:20 22:15 06:53 Creatine Kinase Troponin I < 0.012 < 0.012 NT-Pro-B Natriuret Pep 286 H 12/05/17 06:53 Creatine Kinase 154 H Troponin I NT-Pro-B Natriuret Pep Impressions: Chest X-Ray 12/04/17 12:10 IMPRESSION: NO ACUTE RADIOGRAPHIC FINDING IN THE CHEST. Chest/Abdomen CTA 12/04/17 12:20 IMPRESSION: NORMAL CTA OF THE CHEST. NO PULMONARY EMBOLI. Qualifiers - * PATIENT BEING DISCHARGED WITH ANY OF THE FOLLOWING DIAGNOSIS: No Plan Discharge Plan: Follow up with primary care provider within 1 week. Follow up with Cardiology, Dr. Jensen, for overnight sleep study. Time Spent: Less than 30 Minutes
== END 2017-12-05 17:48 | disposition home or self-care (01) ==
LOC: ER 11:56 → EH 14:30 → 5 16:26
PROVIDERS: ADMIT Internal Medicine; ATTEND Internal Medicine
DX: R07.89 Other chest pain (principal); R06.00 Dyspnea, unspecified; R60.1 Generalized edema; R34 Anuria and oliguria; R06.01 Orthopnea; I10 Essential (primary) hypertension; R73.9 Hyperglycemia, unspecified; R79.89 Other specified abnormal findings of blood chemistry; Z79.3 Long term (current) use of hormonal contraceptives
CPT/HCPCS: 93005; 99285; 96374; 36415 ×2; 82553; 82550 ×2; 84443; 85025; 85027; 85652; 81025; 86140; 80048; 80053; 81001; 84484; 83036; 80061; 83880 ×2; 93306; 93017; 71045; 71275; 93010; G0378 ×3; J1940; J3490 ×2

== ENCOUNTER → 2018-05-14 | Outpatient (CLI) | payer BC, OTHER ==
[2018-05-14 21:35] LABS: APPEARANCE,URINE SLIGHTLY-CLOUDY; BILIRUBIN,URINE NEGATIVE (NEGATIVE); COLOR,URINE YELLOW; GLUCOSE, URINE NEGATIVE (NEGATIVE); KETONES,URINE NEGATIVE (NEGATIVE); LEUKOCYTE ESTERASE,URINE TRACE (NEGATIVE); NITRITE,URINE NEGATIVE (NEGATIVE); PROTEIN,URINE NEGATIVE (NEGATIVE); URINE SPECIFIC GRAVITY 1.018; UROBILINOGEN,URINE NEGATIVE mg/dL (<2.0)
== END ==
LOC: LAB 21:14
PROVIDERS: ATTEND Emergency Medicine
DX: N39.0 Urinary tract infection, site not specified (principal)
CPT/HCPCS: 81001